=== PATIENT | male | born 1940 | race Caucasian/White ===

== ENCOUNTER 2016-12-01 09:24 | Day surgery (SDC) | payer OTHER, MEDICARE ==
[2016-12-01] MEDS ORDERED: NS 500 ML IV 500 ML IV ONE (09:43)
[2016-12-01] MEDS ORDERED: TETRACAINE 0.5% OPHTH 1 DOSE AFFEYE ONE ×2 (09:45→13:11)
[2016-12-01] MEDS ORDERED: VIGAMOX 0.5% OPHTH 1 DOSE AFFEYE ONE ×5 (09:46→13:46)
[2016-12-01] MEDS ORDERED: PROLENSA OPHTH 1 DOSE AFFEYE ONE (09:57)
[2016-12-01] MEDS ORDERED: ALPHAGAN-P OPHTH 1 DOSE AFFEYE ONE (09:58)
[2016-12-01] MEDS ORDERED: MYDRIACIL OPHTH 1 DOSE AFFEYE ONE ×3 (10:00→10:04)
[2016-12-01] MEDS ORDERED: CYCLOGYL 1% OPHTH 1 DOSE OP ONE ×3 (10:00→10:04)
[2016-12-01] MEDS ORDERED: AK-DILATE 2.5% OPHTH 1 DOSE OP ONE ×3 (10:00→10:04)
[2016-12-01] MEDS ORDERED: BETADINE OPHTH SOLN 5% EACHEYE ONE (13:11)
[2016-12-01] MEDS ORDERED: XYLOCAINE-MPF 1% IJ ONE ×2 (13:20→13:30)
[2016-12-01] MEDS ORDERED: ADRENALINE CHL INJ IJ ONE ×2 (13:20→13:30)
[2016-12-01] MEDS ORDERED: DUOVISC IO ONE ×2 (13:20→13:30)
[2016-12-01] MEDS ORDERED: BSS OPHTH (PLAIN) 500 ML with VANCOMYCIN HCL 500 MG VIAL 25 MG, ADRENALINE CHL INJ 1 MG IR ONE ×6 (13:22)
[2016-12-01] MEDS ORDERED: VISCOAT 0.5 ML IO ONE (13:40)
[2016-12-01 14:02] VITALS: BP 192/85
== END 2016-12-01 14:03 | disposition home or self-care (01) ==
LOC: SURG1 09:24
PROVIDERS: ATTEND Ophthalmology
PROC: 08DK3ZZ Extraction of Left Lens, Percutaneous Approach (ICD-10-PCS; principal; 2016-12-01 17:45)
PROC: 08RK3JZ Replacement of Left Lens with Synthetic Substitute, Percutaneous Approach (ICD-10-PCS; principal; 2016-12-01 17:45)
DX: H25.12 Age-related nuclear cataract, left eye (principal); H25.012 Cortical age-related cataract, left eye; H25.042 Posterior subcapsular polar age-related cataract, left eye
CPT/HCPCS: 99100; A4217; J0170; J3370

== ENCOUNTER 2016-12-08 07:08 | Day surgery (SDC) | payer OTHER, MEDICARE ==
[2016-12-08] MEDS ORDERED: NS 500 ML IV 500 ML IV ONE (08:00)
[2016-12-08] MEDS ORDERED: TETRACAINE 0.5% OPHTH 1 DOSE AFFEYE ONE ×2 (08:45→10:46)
[2016-12-08] MEDS ORDERED: VIGAMOX 0.5% OPHTH 1 DOSE AFFEYE ONE ×5 (08:50→11:18)
[2016-12-08] MEDS ORDERED: PROLENSA OPHTH 1 DOSE AFFEYE ONE (09:01)
[2016-12-08] MEDS ORDERED: ALPHAGAN-P OPHTH 1 DOSE AFFEYE ONE (09:02)
[2016-12-08] MEDS ORDERED: AK-DILATE 2.5% OPHTH 1 DOSE OP ONE ×3 (09:03→09:05)
[2016-12-08] MEDS ORDERED: CYCLOGYL 1% OPHTH 1 DOSE OP ONE ×3 (09:03→09:05)
[2016-12-08] MEDS ORDERED: MYDRIACIL OPHTH 1 DOSE AFFEYE ONE ×3 (09:03→09:05)
[2016-12-08] MEDS ORDERED: BETADINE OPHTH SOLN 5% EACHEYE ONE (10:46)
[2016-12-08] MEDS ORDERED: DUOVISC IO ONE ×2 (10:57→11:05)
[2016-12-08] MEDS ORDERED: ADRENALINE CHL INJ IJ ONE ×2 (10:57→11:05)
[2016-12-08] MEDS ORDERED: XYLOCAINE-MPF 1% IJ ONE ×2 (10:57→11:05)
[2016-12-08] MEDS ORDERED: BSS OPHTH (PLAIN) 500 ML with VANCOMYCIN HCL 500 MG VIAL 25 MG, ADRENALINE CHL INJ 1 MG IR ONE ×6 (10:58)
[2016-12-08 12:11] VITALS: BP 171/79
[2016-12-08] MEDS ORDERED: DIPRIVAN VIAL ONE (13:59)
== END 2016-12-08 11:45 | disposition home or self-care (01) ==
LOC: SURG1 07:08
PROVIDERS: ATTEND Ophthalmology
PROC: 08DJ3ZZ Extraction of Right Lens, Percutaneous Approach (ICD-10-PCS; principal; 2016-12-08 10:30)
PROC: 08RJ3JZ Replacement of Right Lens with Synthetic Substitute, Percutaneous Approach (ICD-10-PCS; principal; 2016-12-08 10:30)
DX: H25.11 Age-related nuclear cataract, right eye (principal); H25.011 Cortical age-related cataract, right eye; H25.041 Posterior subcapsular polar age-related cataract, right eye
CPT/HCPCS: 99100; A4217; J0170; J3370; J3490